=== PATIENT | female | born 1965 | race Caucasian/White ===

== ENCOUNTER 2022-01-06 09:38 | Outpatient (CLI) | payer OTHER ==
--- NOTE | 2022-01-06 15:45 | XRAY Report ---
PROCEDURE: Tib/Fib RT INDICATIONS: CONTUSION OF RIGHT LOWER LEG TECHNIQUE: 2 views of the tibia and fibula were acquired. COMPARISON: None FINDINGS: Bones: No fractures or dislocations. No suspicious bony lesions. Soft tissues: No suspicious soft tissue calcifications or masses. IMPRESSION: No acute osseous abnormality. If symptoms persist, follow-up radiographs and/or CT may be helpful for further evaluation. Reviewed by: Alexander Grigsby MD on 01/06/2022 3:44 PM PST Approved by: Alexander Grigsby MD on 01/06/2022 3:44 PM PST Station ID: [id number]
== END 2022-01-06 09:39 | disposition home or self-care (01) ==
LOC: DI 09:38
PROVIDERS: ATTEND Family Medicine
DX: S80.11XA Contusion of right lower leg, initial encounter (principal)

== ENCOUNTER 2022-12-06 19:07 | Emergency (ER) | payer OTHER ==
[2022-12-06 19:37] LABS: BASOPHILS % (AUTO) 0.2 %; EOSINOPHILS # (AUTO) 0.3 10^3/uL (0.0-0.7); EOSINOPHILS % (AUTO) 2.3 %; HCT - HEMATOCRIT 39.1 % (37.0-47.0); HGB - HEMOGLOBIN 13.2 g/dL (12.0-16.0); LYMPHOCYTES # (AUTO) 2.1 10^3/uL (1.5-3.5); LYMPHOCYTES % (AUTO) 16.9 %; MEAN CORPUSCULAR HGB CONC 33.8 g/dL (32.0-36.0); MEAN CORPUSCULAR VOLUME 91.8 fL (81.0-99.0); MEAN PLATELET VOLUME 9.6 fL (7.9-10.8); MONOCYTES # (AUTO) 1.3 10^3/uL (0.0-1.0); MONOCYTES % (AUTO) 10.4 %; NEUTROPHILS # (AUTO) 8.7 10^3/uL (1.5-6.6); PLT - PLATELET COUNT 297 10^3/uL (130-450); RED BLOOD COUNT 4.26 10^6/uL (4.20-5.40); RED CELL DISTRIBUTION WIDTH 12.3 % (12.0-15.0); WHITE BLOOD COUNT 12.4 x10^3/uL (4.8-10.8)
[2022-12-06 19:45] LABS: BILIRUBIN,URINE NEGATIVE (NEGATIVE); GLUCOSE, URINE (UA) NEGATIVE (NEGATIVE); KETONES,URINE (UA) NEGATIVE (NEGATIVE); LEUKOCYTE ESTERASE, URINE NEGATIVE (NEGATIVE); NITRITE,URINE NEGATIVE (NEGATIVE); OCCULT BLOOD,URINE SMALL (NEGATIVE); PH,URINE 6.5 PH (5.0-7.5); PROTEIN,URINE NEGATIVE (NEGATIVE); UROBILINOGEN,URINE 0.2 (NORMAL) E.U./dL (NORMAL)
[2022-12-06 19:47] LABS: CLARITY,URINE CLEAR (CLEAR)
[2022-12-06 19:49] LABS: HCG UR QUAL NEGATIVE
[2022-12-06 19:58] LABS: ALBUMIN 4.6 g/dL (3.2-5.5); ALBUMIN/GLOBULIN RATIO 1.7 (1.0-2.2); BILIRUBIN,TOTAL 1.3 mg/dL (0.2-1.0); CALCIUM 9.6 mg/dL (8.5-10.3); CREATININE 0.9 mg/dL (0.6-1.3); TOTAL PROTEIN 7.3 g/dL (6.4-8.9)
[2022-12-06 19:58] LABS: BACTERIA,URINE None Seen /HPF (None Seen); SQUAMOUS EPITHELIAL CELL,UR RARE Squamous (<= Few); WBC,URINE 0-3 /HPF (0-5)
[2022-12-07] MEDS ORDERED: KETOROLAC 30 MG/ML VIAL IVP STA (00:17)
[2022-12-07] MEDS ORDERED: ONDANSETRON 4 MG/2 ML VIAL IVP STA (00:17)
--- NOTE | 2022-12-07 01:17 | ED Physician Documentation ---
PD HPI ABD PAIN - Stated complaint Stated Complaint: ABD PX/GI - Chief complaint Chief Complaint: Abd Pain - History obtained from History obtained from: Patient - Additional information Additional information: HPI from patient. Patient c/o abdominal pain starting 2 days ago, sharp and predominantly left- sided and greatest in LLQ. Patient had diarrhea 6 days ago, took immodium and then became constipated for several days. Pain started 2 days ago and has steadily worsened since having a large BM yesterday. She denies h/o similar pain. Denies fever. She did note small amount of blood in stools subsequent to the large BM yesterday. Pain is worse with movement, palpation. No ameliorating factors. Denies n/v. Past surgical history includes repair of umbilical hernia as well as tubal ligation. Review of Systems Constitutional: reports: Reviewed and negative Cardiac: reports: Reviewed and negative Respiratory: reports: Reviewed and negative GI: reports: Abdominal Pain, Constipation, Diarrhea, Bloody / black stool. denies: Nausea, Vomiting : denies: Dysuria, Frequency, Now [facility] PD PAST MEDICAL HISTORY - Past Medical History Past Medical History: Yes Cardiovascular: Hypertension, High cholesterol Respiratory: None Neuro: None Endocrine/Autoimmune: HyPOthyroidism GI: Other SQL DATABASE ADMINISTRATOR: None : None HEENT: None Psych: None Musculoskeletal: Osteoarthritis, Chronic back pain Derm: None - Past Surgical History Past Surgical History: Yes General: Other /SQL DATABASE ADMINISTRATOR: Tubal ligation - Present Medications Home Medications: Ambulatory Orders Medication Instructions Recorded Confirmed Atorvastatin Calcium 40 mg PO HS 12/06/22 12/06/22 Baclofen [Lioresal] 10 mg PO TID PRN 12/06/22 12/06/22 Cetirizine [ZyrTEC] 10 mg PO DAILY 12/06/22 12/06/22 DULoxetine [Cymbalta] 30 mg PO DAILY 12/06/22 12/06/22 Fluticasone [Flonase] 1 sprays YUDI DAILY 12/06/22 12/06/22 Levothyroxine [Synthroid] 125 mcg PO QDAC 12/06/22 12/06/22 Lisinopril [Zestril] 20 mg PO DAILY 12/06/22 12/06/22 Naproxen 500 mg PO BID 12/06/22 12/06/22 traMADol [Ultram] 50 mg PO BID PRN 12/06/22 12/06/22 Ciprofloxacin HCl [Cipro] 500 mg PO BID #14 tablet 12/07/22 HYDROcod/ACETAM 5/325 [[place] 5/325] 1 - 2 tablet PO Q6H PRN #14 tablet 12/07/22 metroNIDAZOLE [Flagyl] 500 mg PO BID 7 Days #14 tablet 12/07/22 - Allergies Allergies/Adverse Reactions: Allergies Allergy/AdvReac Type Severity Reaction Status Date / Time No Known Drug Allergies Allergy Verified 12/06/22 19:18 - Social History Does the pt smoke?: No Smoking Status: Never smoker Does the pt drink ETOH?: Yes Does the pt have substance abuse?: No - Immunizations Immunizations are current?: Yes PD ED PE NORMAL - Vitals Vital signs reviewed: Yes - General General: Alert and oriented X 3, No acute distress, Well developed/nourished - Cardiac Cardiac: RRR - Respiratory Respiratory: No respiratory distress, Clear bilaterally - Abdomen Abdomen: Soft, Non distended, Other (mild/moderate TTP LLQ without rebound or guarding) - Back Back: No CVA TTP PD ED PE EXPANDED - Cardiac Cardiac: Murmur Present (2/6 JON right 2nd ICS) Results - Vitals Vitals: Oxygen O2 Source Room air - Labs Labs: Laboratory Tests 12/06/22 12/06/22 12/06/22 19:30 19:32 19:32 WBC 12.4 H RBC 4.26 Hgb 13.2 Hct 39.1 MCV 91.8 MCH 31.0 MCHC 33.8 RDW 12.3 Plt Count 297 MPV 9.6 Neut # (Auto) 8.7 H Lymph # (Auto) 2.1 [place] # (Auto) 1.3 H Eos # (Auto) 0.3 Baso # (Auto) 0.0 Absolute Nucleated RBC 0.00 Nucleated RBC % 0.0 Sodium 141 Potassium 4.0 Chloride 106 Carbon Dioxide 29 Anion Gap 6.0 BUN 8 Creatinine 0.9 Estimated GFR (MDRD) 64 L Glucose 102 Calcium 9.6 Total Bilirubin 1.3 H AST 19 ALT 18 Alkaline Phosphatase 58 Total Protein 7.3 Albumin 4.6 Globulin 2.7 Albumin/Globulin Ratio 1.7 Lipase 17 Urine Color YELLOW Urine Clarity CLEAR Urine pH 6.5 Ur Specific [place] <=1.005 Urine Protein NEGATIVE Urine Glucose (UA) NEGATIVE Urine Ketones NEGATIVE Urine Occult Blood SMALL H Urine Nitrite NEGATIVE Urine Bilirubin NEGATIVE Urine Urobilinogen 0.2 (NORMAL) Ur Leukocyte Esterase NEGATIVE Urine RBC 6-10 H Urine WBC 0-3 Ur Squamous Epith Cells RARE Squamous Urine Bacteria None Seen Ur Microscopic Review INDICATED Urine Culture Comments NOT INDICATED Urine HCG, Qual NEGATIVE - Rads (name of study) CT A/P with IV contrast Relevant Findings:: Prelim report reviewed, See rad report PD Medical Decision Making - ED course Complexity details: reviewed results, re-evaluated patient, considered differential, d/w patient ED course: Test ordered and results reviewed by me: CBC, ER abdominal panel, UHCG, UA, CT A/P with IV contrast. No concerning nor diagnostic findings on blood tests. Mild leukocytosis noted (wbc 12.4). Normal LFTs except minimally elevated bilirubin (1.3). Negative urine HCG and UA negative except 6-10 rbc/hpf. CT A/P is c/w colitis from distal transverse colon to mid-descending colon; no evidence of diverticulitis, abscess, free air/perforation. Results d/w patient. CT findings would explain her symptoms, although specific cause of the colitis itself cannot be determined at this time. She is given cipro and flagyl to cover for potential bacterial etiology (with prescriptions for both of these antibiotics e-prescribed to her pharmacy of choice), as well as toradol, zofran, and morphine IV. I am also e-prescribing vicodin for the pain. Return precautions discussed. We discussed possible causes of colitis, including infectious and inflammatory. I advised her to follow up with her PCP within 1 week. Might benefit from further testing, such as colonoscopy, particularly if symptoms persist or reoccur. I am prescribing a short course of short-acting opioid pain medication for this patient. 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 I have discussed that the opioids are for short term therapy only, and will not be refilled from the ED. Departure - Departure Disposition: 01 Home, Self Care Clinical Impression: Colitis Condition: Good Instructions: ED Gastroenteritis Non Infec Follow-Up: NIKOLAI BAILEY MD [Primary Care Provider] - Within 1 week Prescriptions: Ciprofloxacin HCl [Cipro] 500 mg PO BID #14 tablet metroNIDAZOLE [Flagyl] 500 mg PO BID 7 Days #14 tablet HYDROcod/ACETAM 5/325 [[place] 5/325] 1 - 2 tablet PO Q6H PRN #14 tablet PRN Reason: Pain Comments: There were no concerning findings on the blood tests tonight, and your urinalysis was normal. Your CT scan of the abdomen and pelvis does show in flammation of a segment of your colon in the left side of your abdomen. This condition is broadly referred to as colitis, but there are many different causes of colitis. The specific cause of a given case of colitis is typically not determined in the ER, as is your case. Causes include infection (bacteria as well as viruses), inflammatory bowel disease such as ulcerative colitis or Crohn's disease, circulatory problems. Sometimes, a cause is not found. If your symptoms persist or are recurrent, your primary care provider might order further testing such as a colonoscopy. You are given doses of 2 different antibiotics to cover the possibility of a bacterial cause of your colitis, and I have electronically submitted prescriptions for a 1-week course of both these antibiotics to the [facility] pharmacy in [place]. I have also submitted a prescription for Vicodin (narcotic/opiate pain medication). I am prescribing a short course of narcotic pain medication for you. These are potentially dangerous and addictive medications that should be used carefully. These medications may constipate you. Take an [id number] stool softener (docusate) twice daily with plenty of water while taking these medications. If you go 24 hours without a bowel movement, take [id number] miralax, per package instructions. Do not drink or drive while taking these medications. If you received narcotic or sedating medications while in the emergency department, do not drive for 24 hours. Store this medication in a safe, secure place and out of reach of children. It is a violation of federal law to give or sell this medication to another person or to use in a manner other than prescribed. The ED will not refill narcotic prescriptions, including prescriptions lost or stolen. To dispose of unwanted medications: 1. [facility] [address] in [place] has a medication drop box. They accept prescription medications (in pill form) Monday through Monday 9:00 a.m. to 5:00 p.m. 2. The [facility] accepts prescription medications (in pill form only) for disposal year round. Call for more infor cruz. 3. Contact the [facility] for the next [facility] sponsored prescription drug collection event. , [phone], or [phone]; Forms: PCP List Discharge Date/Time: 12/07/22 04:34
[2022-12-07] MEDS ORDERED: iohexoL-300 100 ML VIAL IVP ONE (02:53)
[2022-12-07] MEDS ORDERED: MORPHINE 2 MG/ML CARPUJECT IVP STA (04:13)
[2022-12-07] MEDS ORDERED: metroNIDAZOLE 250 MG TABLET PO STA (04:13)
[2022-12-07] MEDS: CIPROFLOXACIN 250 MG TABLET PO STA ×2 (04:21→04:22)
[2022-12-07 04:43] VITALS: BP 138/75; O2SAT 98
--- NOTE | 2022-12-07 09:03 | CT Report ---
PROCEDURE: ABDOMEN/PELVIS W INDICATIONS: LLQ pain, tenderness CONTRAST: Omni 300 100ml TECHNIQUE: After the administration of intravenous contrast, 5 mm thick sections acquired from the diaphragms to the symphysis. 5 mm thick coronal and sagittal reformats were acquired. For radiation dose reducti on, the following was used: automated exposure control, adjustment of mA and/or kV according to andrew ent size. COMPARISON: None FINDINGS: Image quality: Excellent. Lung bases and heart: Unremarkable. Liver: No solid mass. Gallbladder and biliary tree: Normal. Nondilated. Spleen: No splenomegaly. Pancreas: No pancreatic ductal dilation. Adrenals: No adrenal nodule. Kidneys and ureters: No hydronephrosis. No renal cystic lesion which requires follow up. No solid mas s. Bowel and peritoneum: Normal stomach, small bowel loops, and appendix. There is long segment circumfe rential wall thickening of the splenic flexure and descending colon including moderate surrounding in flammation and fascial thickening. No extraluminal gas or associated fluid. No visible diverticula. N ormal appendix. Lymph nodes: No central or retroperitoneal adenopathy. Vessels: No infrarenal aortic aneurysm. PELVIS Reproductive organs: Normal CT appearance to the uterus and ovaries. Bladder: No abnormal wall thickening, accounting for underdistension. Pelvic lymph nodes: No pelvic adenopathy by size criteria. Bones: No aggressive osseous abnormality. Other: No significant ventral or inguinal hernia. IMPRESSION: Findings a long segment colitis from distal transverse through the mid descending colon without diver ticula. Findings are most likely an infectious or inflammatory colitis. No evidence of complications such as abscess or perforation. Final interpretation concordant with preliminary report. Reviewed by: Lilo Jackman MD on 12/07/2022 9:02 AM PDT Approved by: Lilo Jackman MD on 12/07/2022 9:02 AM PDT Station ID: [id number]
== END 2022-12-07 04:34 | disposition home or self-care (01) ==
LOC: ED 19:07
DX: K52.9 Noninfective gastroenteritis and colitis, unspecified (principal)
CPT/HCPCS: 36415; 74177; 80053; 81001; 81025; 83690; 85025; 96374; 96375; 99284; A9270; Q9967; 81003; 87086

== ENCOUNTER 2023-06-20 18:21 | Outpatient (CLI) | payer OTHER ==
--- NOTE | 2023-06-21 11:50 | Ultrasound Report ---
PROCEDURE: Extremity Soft Tissue Limited INDICATIONS: WRIST MASS TECHNIQUE: Real-time scanning was performed of the right wrist, with image documentation. COMPARISON: None. FINDINGS: Focused ultrasound examination of volar and radial aspect of right wrist at the area of pa lpable lump shows a 4 x 3 x 4 mm and a 3 x 3 x 9 mm cystic structures in subcutaneous soft tissue and show no internal vascularity. IMPRESSION: Finding may represent subcentimeter ganglion cysts versus fluid distention of tendon she ath involving radial and volar aspect of right wrist as described above. If indicated, MRI of wrist c an be done for further evaluation of this region. Reviewed by: Alexi Fairchild MD on 06/21/2023 11:49 AM PDT Approved by: Alexi Fairchild MD on 06/21/2023 11:49 AM PDT Station ID: [id number]
== END 2023-06-20 18:22 | disposition home or self-care (01) ==
LOC: DI 18:21
PROVIDERS: ATTEND Family Medicine
DX: R22.31 Localized swelling, mass and lump, right upper limb (principal); M25.531 Pain in right wrist